=== PATIENT | female | born 1940 | race Caucasian/White ===

== ENCOUNTER → 2017-11-14 | Outpatient (CLI) | payer OTHER ==
[2017-11-14 17:44] LABS: BASO % 0.2 %; BASO ABS # 0.02 K/uL (0-0.2); EOS ABS # 0.19 K/uL (0-0.5); HEMATOCRIT 39.7 % (37-47); HEMOGLOBIN 13.2 g/dL (12.0-16.0); IG# 0.02 K/uL (0.00-0.02); LYMPH % 35.8 %; LYMPH ABS # 3.41 K/uL (1.2-3.4); MEAN CELL VOLUME 83.6 fL (80-100); MEAN CORPUSCULAR HEMOGLOBIN 27.8 pg (25-34); MEAN CORPUSCULAR HGB CONC 33.2 g/dl (32-36); MEAN PLATELET VOLUME 9.5 fL (7.4-10.4); MONO % 6.5 %; MONO ABS # 0.62 K/uL (0.11-0.59); NEUT % 55.3 %; NEUT ABS # 5.27 K/uL (1.4-6.5); PLATELET COUNT 286 K/uL (130-400); RED CELL DISTRIBUTION WIDTH CV 13.2 % (11.5-14.5); RED CELL DISTRIBUTION WIDTH SD 39.8 fL (36.4-46.3); WHITE BLOOD COUNT 9.53 K/uL (4.8-10.8)
[2017-11-14 18:19] LABS: BLOOD UREA NITROGEN 11 mg/dl (7-18); CREATININE 0.59 mg/dl (0.60-1.20); GLUCOSE 91 mg/dl (70-99)
[2017-11-14 18:20] LABS: CALCIUM 9.5 mg/dl (8.5-10.1); CARBON DIOXIDE 29 mmol/L (21-32); POTASSIUM 3.6 mmol/L (3.5-5.1); SODIUM 136 mmol/L (136-145)
== END | disposition home or self-care (01) ==
LOC: C.LABMFLN 16:33
PROVIDERS: ATTEND Family Medicine
DX: R06.09 Other forms of dyspnea (principal); R00.2 Palpitations; I50.9 Heart failure, unspecified

== ENCOUNTER → 2017-11-22 | Outpatient (CLI) | payer OTHER ==
[2017-11-22 13:19] LABS: BLOOD UREA NITROGEN 13 mg/dl (7-18); CALCIUM 9.4 mg/dl (8.5-10.1); CARBON DIOXIDE 29 mmol/L (21-32); CREATININE 0.62 mg/dl (0.60-1.20); GLUCOSE 81 mg/dl (70-99); SODIUM 136 mmol/L (136-145)
[2017-11-23 14:01] LABS: MICROSOMAL AB 498 IU/ML (<9)
== END | disposition home or self-care (01) ==
LOC: C.LABMFLN 09:02
PROVIDERS: ATTEND Family Medicine
DX: I50.9 Heart failure, unspecified (principal); E05.90 Thyrotoxicosis, unspecified without thyrotoxic crisis or storm

== ENCOUNTER → 2017-12-06 | Outpatient (CLI) | payer OTHER | END | disposition home or self-care (01) | LOC: C.LABMFLN 10:27 | PROVIDERS: ATTEND Family Medicine | DX: E05.90 Thyrotoxicosis, unspecified without thyrotoxic crisis or storm (principal) ==

== ENCOUNTER → 2018-01-05 | Outpatient (CLI) | payer OTHER ==
[2018-01-05 14:17] LABS: BLOOD UREA NITROGEN 13 mg/dl (7-18); CALCIUM 9.8 mg/dl (8.5-10.1); CARBON DIOXIDE 31 mmol/L (21-32); CREATININE 0.78 mg/dl (0.60-1.20); GLUCOSE 86 mg/dl (70-99); POTASSIUM 3.9 mmol/L (3.5-5.1); SODIUM 136 mmol/L (136-145)
== END | disposition home or self-care (01) ==
LOC: C.LABMFLN 09:10
PROVIDERS: ATTEND Family Medicine
DX: E05.90 Thyrotoxicosis, unspecified without thyrotoxic crisis or storm (principal); I10 Essential (primary) hypertension; I50.9 Heart failure, unspecified

== ENCOUNTER → 2018-04-25 | Outpatient (CLI) | payer OTHER | END | disposition home or self-care (01) | LOC: C.LABMFLN 12:44 | PROVIDERS: ATTEND Family Medicine | DX: E05.90 Thyrotoxicosis, unspecified without thyrotoxic crisis or storm (principal) ==

== ENCOUNTER 2024-01-30 11:29 | Inpatient (IN) ==
--- NOTE | 2024-01-30 11:51 | Emergency Department Note ---
History of Present Illness General Chief complaint: Cardiac Assessment Time Seen by Provider: 01/30/24 11:35 Source: patient, RN notes reviewed and old records reviewed (I have reviewed an outpatient note from Dr. Macdonald's office today when the patient presented there) Mode of arrival: EMS Limitations: no limitations History of Present Illness Maximum Pain Intensity: 2 This patient is an 84-year-old female who has a very complex medical history including coronary artery disease CHF and arrhythmias, comes in after not feeling well for the last 2 weeks or so she says. She sees Dr. Macdonald every month and went in today and was not feeling well she says she feels like her heart is beating fast when I asked her how long she said it has been a couple weeks she is on Eliquis which she says she has been taking she does feel chronically lightheaded and dizzy. She denies any blood or melena in her stool denies chest pain at present but had some earlier. She has had some nausea at times. She has no shortness of breath at times. She is allergic to aspirin but they did apparently give her nitro in the office. She also apparently was given Cardizem 10 mg IV in the ambulance. Home Medications Medication Instructions Recorded Confirmed Type multivitamin 1 tab PO QAM 08/18/21 01/30/24 History biotin 5,000 mcg disintegrating 10,000 mcg PO QAM 12/16/21 01/30/24 History tablet food supplemt, lactose-reduced 1 ea PO UD 12/16/21 01/30/24 History (Protein Nutritional Shake oral liquid) triamcinolone acetonide 0.1 % 1 applic topical BID PRN itchy 04/07/22 01/30/24 Rx topical cream skin/ eczema #80 grams propylene glycol 0.6 % eye drops 1 drp ophthalmic (eye) DAILY PRN 08/02/22 01/30/24 History (Systane Complete) Dry Eye(S) nitroglycerin 0.4 mg sublingual 0.4 mg sublingual Q5M PRN chest 09/15/22 01/30/24 Rx tablet pain #25 tabs atorvastatin 40 mg tablet 40 mg PO QPM #90 tabs 01/31/23 01/30/24 Rx menthol 9.1 mg lozenges 9.1 mg mucous membrane Q1H PRN 05/25/23 01/30/24 History Cough Oxygen Home 05/31/23 01/30/24 History albuterol sulfate 90 mcg/actuation 2 puff inhalation Q4H PRN 05/31/23 01/30/24 Rx aerosol inhaler shortness of breath or wheezing #18 grams ferrous sulfate 325 mg (65 mg 325 mg PO DAILY 08/02/23 01/30/24 History iron) tablet fluticasone propionate 50 1 spray intranasal DAILY #16 grams 09/19/23 01/30/24 Rx mcg/actuation nasal spray,suspension paroxetine HCl 30 mg tablet 30 mg PO DAILY #30 tabs 09/19/23 01/30/24 Rx loratadine 10 mg tablet 10 mg PO DAILY PRN allergy 10/17/23 01/30/24 Rx symptoms #30 tabs metoprolol tartrate 25 mg tablet 25 mg PO BID #60 tabs 11/26/23 01/30/24 Rx valacyclovir 1 gram tablet 2,000 mg (2 x 1 gram) PO Q12H PRN 12/28/23 01/30/24 Rx cold sores 1 day #12 tabs torsemide 20 mg tablet 20 mg PO QAM #30 tabs 01/02/24 01/30/24 Rx levothyroxine 75 mcg tablet 75 mcg PO .COMPLEX #30 tabs 01/08/24 01/30/24 Rx apixaban 5 mg tablet (Eliquis) 0 mg PO BID 01/30/24 01/30/24 History potassium chloride 20 mEq 20 meq PO BID 01/30/24 01/30/24 History tablet,extended release prednisone 5 mg tablet 5 mg PO DAILY 01/30/24 01/30/24 History trazodone 100 mg tablet 100 - 200 mg PO HS PRN insomnia 01/30/24 01/30/24 History Allergies Allergy/AdvReac Type Severity Reaction Status Date / Time aspirin Allergy Severe hives and Verified 01/30/24 14:01 itching Penicillins Allergy Severe hives and Verified 01/30/24 14:01 itching red dye Allergy Mild itching Verified 01/30/24 14:01 over time with consistency Past Med/Surg History Problem List (Updated 01/30/24 @ 14:27 by Anthony Garduno MD) Elevated troponin I level (Acute) Atrial flutter with rapid ventricular response (Acute) Current use of nursing home anticoagulation (Acute) Chest pain (Acute) Dyspnea Chest discomfort Rapid atrial fibrillation Orthostatic hypotension Right upper quadrant abdominal pain Rib pain Renal insufficiency COPD, severe Pleural effusion Rhinovirus (HFpEF) heart failure with preserved ejection fraction Persistent atrial fibrillation Hypothyroidism PMR (polymyalgia rheumatica) Chronic rhinitis Chronic heart failure with preserved ejection fraction Coronary artery disease Atrial fibrillation Hot flashes RSV (respiratory syncytial virus infection) Coronary artery disease Hypoxia Cough Fatigue Pulmonary hypertension (Acute) Mitral regurgitation (Acute) Cervicalgia of ugaahmqp-cnkyduv-mhyfd region (Acute) Rotator cuff tear Postmenopausal symptoms Chronic diarrhea Anemia Chronic GERD Abnormal weight loss Abnormal weight loss Collagenous colitis Acute cholecystitis Nasal congestion Ovarian cyst Bilateral wrist pain PMR (polymyalgia rheumatica) Viral wart on finger Anticoagulant long-term use Iron deficiency anemia S/P CABG x 3 (~04/22/22) [facility] - coronary artery bypass grafting x 3 using JERRY-LAD and reversed saphenous vein graft to obtuse marginal (2) and posterior descending. Seronegative rheumatoid arthritis Abnormal CT of liver Cholecystitis hx Chronic rhinitis Chronic diastolic CHF (congestive heart failure) Insomnia (Acute) Benign essential hypertension (Acute) Hypercholesterolemia (Acute) Graves disease (Acute) monitoring with PCP, medication PRN depending on the levels euthyroid per 01/2022, 03/2022 labs Dyslipidemia (Acute) Asthma, mild intermittent (Acute) Herpes labialis Medical History (Updated 01/30/24 @ 14:27 by Anthony Garduno MD) On amiodarone therapy Sepsis Depression Paroxysmal atrial fibrillation Wound infection after surgery left leg below the knee (where the artery was removed for the bypass surgery 04/22/2022) -- currently changing wet/dry pack BID. home health care 2 to 3x week Non-STEMI (non-ST elevated myocardial infarction) 04/22/[address] [facility] Surgical History History of anesthesia reaction "breathing problems" after the cholecystectomy (05/2021; [facility]) S/P unilateral salpingo-oophorectomy RSO at [facility] 2021 History of esophagogastroduodenoscopy (EGD) History of colonoscopy Hx of cholecystectomy [facility] - inpatient s/p 4 days d/t surgery complications. patient unsure if it was related to surgical vs anesthesia problems. H/O shoulder surgery Bilateral RCR History of breast biopsy History of tubal ligation History of hysterectomy with LSO Family History Father Myocardial infarction Mother Hyperthyroidism Sister Breast cancer Daughter Hypertension Denies family history of Ovarian cancer Prostate cancer Colorectal cancer Social History Smoking Status: Former smoker Tobacco Type: Cigarettes Smoking End Date: 35 years ago; Second Hand Exposure: No; Do You Dip or Chew Tobacco: No; Tobacco Cessation Education Requested by Patient: No Hx Alcohol Use: No Hx Substance Use: No Preferred Language: Comoran Communication Ability: Effective Visual Impairment: Partially Limited Hearing Ability: Normal Research Librarian Required: No Beliefs That Will Affect Care: None marital status: / Current Living Situation: Family current occupational status: retired 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 How many Children do You have: 2 Other Information That Helps Us Care for You: No Feels Safe at Home: Yes Safety Concerns: Feels Safe At This Time Dental Care, Regularly: Yes Seatbelt Use: always Assistive Devices: Cane, Denture - Lower, Nebulizer, Oxygen - Continuous and Wheelchair Review of Systems A total of 10 systems reviewed and were otherwise negative Physical Exam Vital Signs Vital Signs - 24 hr 01/30/24 11:29 01/30/24 11:43 01/30/24 12:00 Temperature 36.7 C Temperature Source Oral Pulse Rate 131 H 131 H 132 H Pulse Rate from SpO2 Sensor 133 H Pulse Rhythm Regular Respiratory Rate 18 18 24 Respiratory Effort / Characteristics Non-Labored Respiratory Depth Normal Respiratory Pattern Regular Blood Pressure 128/88 135/100 Blood Pressure Mean 101 111 Pulse Oximetry 95 95 98 Oxygen Delivery Method Nasal Cannula Nasal Cannula Oxygen Flow Rate 2 2 Sepsis Recent Fever Within 48 Hours No Sepsis New/Unexplained Change in Mental Status N/A Sepsis Action Taken by Nursing No Action Required 01/30/24 12:09 01/30/24 12:22 01/30/24 12:30 Temperature Temperature Source Pulse Rate 132 H 122 H 131 H Pulse Rate from SpO2 Sensor 131 H Pulse Rhythm Respiratory Rate 19 Respiratory Effort / Characteristics Respiratory Depth Respiratory Pattern Blood Pressure 135/100 139/96 Blood Pressure Mean 110 Pulse Oximetry 100 Oxygen Delivery Method Oxygen Flow Rate Sepsis Recent Fever Within 48 Hours Sepsis New/Unexplained Change in Mental Status Sepsis Action Taken by Nursing 01/30/24 13:00 01/30/24 13:04 Temperature Temperature Source Pulse Rate 132 H 132 H Pulse Rate from SpO2 Sensor 132 H Pulse Rhythm Respiratory Rate 27 H Respiratory Effort / Characteristics Respiratory Depth Respiratory Pattern Blood Pressure 141/86 H 141/86 H Blood Pressure Mean 104 Pulse Oximetry 100 Oxygen Delivery Method Oxygen Flow Rate Sepsis Recent Fever Within 48 Hours Sepsis New/Unexplained Change in Mental Status Sepsis Action Taken by Nursing General: Well developed well nourished chronically ill-appearing older female who appears in no acute distress, breathing comfortably on room air. Normal speech HEENT: Normal cephalic atraumatic. Pupils are equal round and reactive to light. Extraocular movements are intact. Oropharynx is pink with moist mucous membranes. No swelling of the mouth lips or tongue. Neck: Supple with a midline trachea. No meningeal signs or stiffness, no JVD or bruits. No Stridor. Chest: Clear to auscultation bilaterally. No wheezes or rhonchi. No increased work of breathing. Heart: Regular rate and rhythm with what appears to be 2-1 a flutter on the monitor at a rate of about 130 without murmurs or gallops. Abdomen: Soft nontender, nondistended without rebound guarding or rigidity. Extremities: No cyanosis clubbing or edema. No calf tenderness or assymetry Spine/Back. Non tender to palpation. No CVA tenderness Skin: Good turgor without rashes. Neurologic exam: Cranial nerves two through 12 are intact. Motor and sensation are intact and symmetrical throughout. Course Administered Medications Discontinued Medications Metoprolol Tartrate (Metoprolol Tartrate 1 Mg/Ml Vial) 5 mg IV NOW STA Stop: 01/30/24 12:04 Last Admin: 01/30/24 12:09 Dose: 5 mg Documented By: SO Medical Decision Making Differential Diagnosis Acute coronary syndrome, arrhythmia, A-fib/a flutter, CHF, electrolyte or metabolic abnormality, anemia, infection, pulmonary disease Medical Records Attestation: I reviewed the patient's medical records. Home Medications Current Medication List: was personally reviewed by me Laboratory Data Attestation: I reviewed the patient's lab results. 01/30/24 11:45 01/30/24 11:45 Lab Results 01/30/24 Range/Units 11:45 WBC 10.88 H (4.8-10.8) K/ul RBC 3.89 L (4.20-5.40) M/uL Hgb 9.5 L (12.0-16.0) g/dl Hct 32.6 L (37.0-47.0) % MCV 83.8 (80.0-100.0) fL MCH 24.4 L (25.0-34.0) pg MCHC 29.1 L (32.0-36.0) g/dL RDW Std Deviation 50.2 H (36.4-46.3) fL RDW Coeff of [place] 16.6 H (11.5-14.5) % Plt Count 308 (130-400) K/uL MPV 9.6 (9.4-12.4) fL Immature Gran % (Auto) 0.6 % Neut % (Auto) 71.0 % Lymph % (Auto) 16.5 % [place] % (Auto) 7.8 % Eos % (Auto) 3.5 % Baso % (Auto) 0.6 % Neut # (Auto) 7.72 H (1.40-6.50) K/uL Lymph # (Auto) 1.80 (1.20-3.40) K/uL [place] # (Auto) 0.85 H (0.11-0.59) K/uL Eos # (Auto) 0.38 (0.00-0.50) K/uL Baso # (Auto) 0.06 (0.00-0.20) K/uL Immature Gran # (Auto) 0.07 (0.01-0.20) K/uL Absolute Nucleated RBC 0.02 (0.00-0.12) K/uL Nucleated RBC % (auto) 0.2 % PT 13.0 H (9.0-12.0) Seconds INR 1.2 H (0.9-1.1) APTT 25 (21-31) Seconds PTT Ratio 0.9 Sodium 141 (136-145) mmol/L Potassium 3.9 (3.5-5.1) mmol/L Chloride 104 (98-107) mmol/L Carbon Dioxide 28 (21-32) mmol/L Anion Gap 9 (3-11) BUN 28 H (6-23) mg/dl Creatinine 1.16 (0.6-1.2) mg/dl Est Cr Clr Drug Dosing 32.0 ml/min Est GFR ( Amer) 50.8 ml/min Est GFR (Non-Af Amer) 43.8 ml/min BUN/Creatinine Ratio 24.1 H (10-20) Glucose 79 (70-99(Fasting)) mg/dl Calcium 9.5 (8.6-10.3) mg/dl Magnesium 1.9 (1.7-2.4) mg/dl Total Bilirubin 0.7 (0.2-1.0) mg/dl AST 47 H (13-39) U/L ALT 41 (7-52) U/L Alkaline Phosphatase 147 H (34-104) U/L Troponin I High Sens 27.2 H (0-14) pg/ml B-Natriuretic Peptide 190 H (0-100) pg/ml Total Protein 6.8 (6.0-8.3) gm/dl Albumin 3.9 (3.4-5.0) gm/dl Globulin 2.9 (2.5-4.0) gm/dl Albumin/Globulin Ratio 1.3 (0.9-2) Lipase 28 (11-82) U/L TSH 0.083 L (0.300-4.500) uIu/ml Free T4 2.58 H (0.61-1.60) ng/dl Imaging Data Attestation: I personally reviewed and interpreted this imaging study as follows: My Impression: Chest x-raycardiomegaly and previous cardiac surgery. Increased interstitial markings which are likely chronic and no overt CHF pneumonia or pneumothorax seen Radiologist's Impression: Chest X-Ray 01/30/24 11:43 XR chest 1V portable CLINICAL HISTORY: Chest pain, nonspecific TECHNIQUE: Single frontal radiograph of the chest was obtained. Comparison: Comparison is made to chest radiograph 11/01/2008 FINDINGS: Median sternotomy wires are unchanged. Cardiomegaly is noted. The aortic arch is calcified. Trace right and small left pleural effusions. Mild left lower lung airspace opacities. IMPRESSION: Mild left lower lung airspace opacity with small left pleural effusion. This may represent atelectasis with or without superimposed aspiration/pneumonia. ACT 112: Negative or not required by law. Electronically signed by: Suhail Worthington M.D. 01/30/2024 12:37 PM ECG Data Attestation: I personally reviewed and interpreted this ECG as follows: Indication: + chest pain and + palpitations Rate (beats per minute): 132 Rhythm: + atrial flutter (With 2-1 conduction) ECG Intervals/blocks: + Normal QRS ECG [place]: + Normal ECG ST segments: + Normal ST segments ECG Findings: no PACs or no PVCs Comparison ECG Date: from (06/17/22) Change: the following changes noted (A flutter has replaced normal sinus rhythm) Additional Comments: I did also review/interpret the EKG that was done in the primary care doctor's office which shows a flutter with a rate of 133 and looks similar to the EKG done here MDM Narrative This patient was sent over from Dr. Macdonald's office she has had chest pain and is found to be in a flutter in his office apparently she was in A-fib with a rapid ventricular rate she has not been feeling well for several weeks now. She tells me she has no chest pain at present. She also tells me that her hearts been racing for several weeks she is on Eliquis. I did order chest x-ray after reviewing her extensive medical history as well as multiple blood testing and EKG. She was placed on a monitoring manager room B2. She was given Lopressor 5 mg IV this may have dropped her rate into the 120s briefly but it seems to be sitting in the 130s with flutter. She has no fever or white count to suggest infection she has chronic anemia. She is no acute electrolyte or metabolic abnormality TSH is mildly low and she could be slightly hyperthyroid, but I do not think she is likely in thyroid storm. Troponin was mildly elevated. She has no chest pain at present and is resting comfortably I did discuss case with Dr. Anthony Garduno and he will see the patient in the ER for admission/observation. He did want me to hold off on the second dose of Lopressor that I had ordered and was subsequently canceled as they will likely start her on a different medication or cardiovert her in the hospital. He is going to further discuss it with the guide plant. Continuous cardiac monitoring: Orders placed in the EMR for continuous monitoring manager call upon my evaluation patient noted to be in atrial fibs/flutter with a rate of 130 Impression & Plan Atrial flutter with rapid ventricular response, Chest pain, Current use of nursing home anticoagulation, Elevated troponin I level Discharge Plan Visit Data Chief Complaint: Cardiac Assessment ED Provider: Sonny Malhotra Discharge Problem: Atrial flutter with rapid ventricular response, Chest pain, Current use of outreach analyst anticoagulation, Elevated troponin I level Discharge Instructions Interventions: ED Discharge Assessment Last Done: 01/30/24 14:08 Discharge Problem: Chest pain Qualifiers: Chest pain type: precordial pain Qualified Code(s): R07.2 - Precordial pain
[2024-01-30] MEDS: METOPROLOL TARTRATE 1 MG/ML VIAL IV STA (12:09)
[2024-01-30 12:15] LABS: Basophils # (auto) 0.06 K/uL (0.00-0.20); Basophils % (auto) 0.6 %; Eosinophils # (auto) 0.38 K/uL (0.00-0.50); Eosinophils % (auto) 3.5 %; Hematocrit (blood only) 32.6 % (37.0-47.0); Hemoglobin 9.5 g/dl (12.0-16.0); Immature Granulocytes # (auto) 0.07 K/uL (0.01-0.20); Immature Granulocytes % (auto) 0.6 %; Lymphocytes % (auto) 16.5 %; Mean Corpuscular Hemoglobin 24.4 pg (25.0-34.0); Mean Corpuscular Hgb Conc 29.1 g/dL (32.0-36.0); Mean Corpuscular Volume 83.8 fL (80.0-100.0); Mean Platelet Volume 9.6 fL (9.4-12.4); Monocytes # (auto) 0.85 K/uL (0.11-0.59); Monocytes % (auto) 7.8 %; Neutrophils # (auto) 7.72 K/uL (1.40-6.50); Nucleated RBC # (auto) 0.02 K/uL (0.00-0.12); Nucleated RBC % (auto) 0.2 %; Platelet Count 308 K/uL (130-400); RDW Coefficient of Variation 16.6 % (11.5-14.5); RDW Standard Deviation 50.2 fL (36.4-46.3); Red Blood Count 3.89 M/uL (4.20-5.40); White Blood Count 10.88 K/ul (4.8-10.8)
[2024-01-30 12:33] LABS: Albumin Globulin Ratio 1.3 (0.9-2); Albumin Level 3.9 gm/dl (3.4-5.0); BUN Creatinine Ratio 24.1 (10-20); Bilirubin,Total 0.7 mg/dl (0.2-1.0); Calcium 9.5 mg/dl (8.6-10.3); Est GFR (African American) 50.8 ml/min; Est GFR (Non-African American) 43.8 ml/min; Globulin 2.9 gm/dl (2.5-4.0); Magnesium 1.9 mg/dl (1.7-2.4); Potassium 3.9 mmol/L (3.5-5.1); Total Protein 6.8 gm/dl (6.0-8.3)
[2024-01-30 12:38] LABS: Troponin I High Sensitivity 27.2 pg/ml (0-14)
--- NOTE | 2024-01-30 12:38 | XRay Report ---
XR chest 1V portable CLINICAL HISTORY: Chest pain, nonspecific TECHNIQUE: Single frontal radiograph of the chest was obtained. Comparison: Comparison is made to chest radiograph 11/01/2008 FINDINGS: Median sternotomy wires are unchanged. Cardiomegaly is noted. The aortic arch is calcified. Trace rig ht and small left pleural effusions. Mild left lower lung airspace opacities. IMPRESSION: Mild left lower lung airspace opacity with small left pleural effusion. This may represent atelectasi s with or without superimposed aspiration/pneumonia. ACT 112: Negative or not required by law. Electronically signed by: Suhail Worthington M.D. 01/30/2024 12:37 PM
[2024-01-30 12:40] LABS: INR 1.2 (0.9-1.1); Partial Thromboplastin Ratio 0.9; Partial Thromboplastin Time 25 Seconds (21-31)
[2024-01-30 12:47] LABS: Thyroid Stimulating Hormone 0.083 uIu/ml (0.300-4.500)
[2024-01-30] MEDS ORDERED: METOPROLOL TARTRATE 1 MG/ML VIAL IV STA (12:49)
--- NOTE | 2024-01-30 12:53 | Electrocardiogram Report ---
Test Reason : Blood Pressure : / mmHG Vent. Rate : 132 BPM Atrial Rate : 264 BPM P-R Int : 000 ms QRS Dur : 096 ms QT Int : 348 ms P-R-T Axes : -80 -16 190 degrees QTc Int : 515 ms Atrial flutter with 2:1 A-V conduction Nonspecific ST and T wave abnormality Abnormal ECG When compared with ECG of 17-JUN-2022 08:07, Atrial flutter has replaced Sinus rhythm Vent. rate has increased BY [address] and T wave abnormality now present Confirmed by Chad Ferguson ([id number]) on 01/30/2024 12:53:33 PM Referred By: Confirmed By:Chad Ferguson
--- NOTE | 2024-01-30 12:57 | History & Physical Report ---
Date of Service January 30, 2024 Assessment & Plan (1) Atrial flutter with rapid ventricular response: Plan: Electrical +/- chemical cardioversion, would avoid further rate control given her symptoms are very mild Consult cardiology for decision regarding above, NPO until seen by cardiology Over treated hypothyroidism may be playing a part and levothyroxine will be discontinued Continue anticoagulation - Eliquis (2) (HFpEF) heart failure with preserved ejection fraction: Plan: Acute on chronic - suspect acute worsening due to decreased torsemide and rate related from #1 Will defer increasing torsemide until cardioversion given prior increased dose while in a. flutter she was hypotensive (3) PMR (polymyalgia rheumatica): Plan: Continue prednisone (notably prescribed 40mg PO daily but she has on her bottle she is taking 5mg PO daily) (4) Hypothyroidism: Plan: TSH 0.083, free T4 2.58 - possibly contributing Stop levothyroxine (5) S/P CABG x 3: (6) Seronegative rheumatoid arthritis: (7) Benign essential hypertension: Plan VTE Prophylaxis - Eliquis Diet - NPO until cardiology review Disposition - admit Admission and Anticipated Discharge Date Admission Date: January 30, 2024 History of Present Illness Chief Complaint: Chest pain Shortness of breath Primary Care Provider: Nigel Macdonald MD Elma Steve is an 84 year old female who presents to the ER with chest pain and shortness of breath. She reports this has been ongoing and getting worse for the last 2 weeks. No fever, chills, cough, weight gain (although notably on EHR she has gained weight). She has noticed orthopnea and increased leg swelling. She was seen by her PCP today and there was concern about a. fib RVR with her having 4/10 chest pain therefore she was sent to the ER for further investigation. Currently chest pain 1/10, central, no radiation. Notably at her PCP appointment on January 01 she was dizzy with low sBP therefore torsemide was reduced. She has noticed increased leg swelling since then. With hindsight her heart rate was 128 at that appointment and she may have been in a. flutter at that time. Allergies Allergy/AdvReac Type Severity Reaction Status Date / Time aspirin Allergy Severe hives and Verified 01/30/24 14:01 itching Penicillins Allergy Severe hives and Verified 01/30/24 14:01 itching red dye Allergy Mild itching Verified 01/30/24 14:01 over time with consistency Home Medications Medication Instructions Recorded Confirmed Type multivitamin 1 tab PO QAM 08/18/21 01/30/24 History biotin 5,000 mcg disintegrating 10,000 mcg PO QAM 12/16/21 01/30/24 History tablet food supplemt, lactose-reduced 1 ea PO UD 12/16/21 01/30/24 History (Protein Nutritional Shake oral liquid) triamcinolone acetonide 0.1 % 1 applic topical BID PRN itchy 04/07/22 01/30/24 Rx topical cream skin/ eczema #80 grams propylene glycol 0.6 % eye drops 1 drp ophthalmic (eye) DAILY PRN 08/02/22 01/30/24 History (Systane Complete) Dry Eye(S) nitroglycerin 0.4 mg sublingual 0.4 mg sublingual Q5M PRN chest 09/15/22 01/30/24 Rx tablet pain #25 tabs atorvastatin 40 mg tablet 40 mg PO QPM #90 tabs 01/31/23 01/30/24 Rx menthol 9.1 mg lozenges 9.1 mg mucous membrane Q1H PRN 05/25/23 01/30/24 History Cough Oxygen Home 05/31/23 01/30/24 History albuterol sulfate 90 mcg/actuation 2 puff inhalation Q4H PRN 05/31/23 01/30/24 Rx aerosol inhaler shortness of breath or wheezing #18 grams ferrous sulfate 325 mg (65 mg 325 mg PO DAILY 08/02/23 01/30/24 History iron) tablet fluticasone propionate 50 1 spray intranasal DAILY #16 grams 09/19/23 01/30/24 Rx mcg/actuation nasal spray,suspension paroxetine HCl 30 mg tablet 30 mg PO DAILY #30 tabs 09/19/23 01/30/24 Rx loratadine 10 mg tablet 10 mg PO DAILY PRN allergy 10/17/23 01/30/24 Rx symptoms #30 tabs metoprolol tartrate 25 mg tablet 25 mg PO BID #60 tabs 11/26/23 01/30/24 Rx valacyclovir 1 gram tablet 2,000 mg (2 x 1 gram) PO Q12H PRN 12/28/23 01/30/24 Rx cold sores 1 day #12 tabs torsemide 20 mg tablet 20 mg PO QAM #30 tabs 01/02/24 01/30/24 Rx levothyroxine 75 mcg tablet 75 mcg PO .COMPLEX #30 tabs 01/08/24 01/30/24 Rx apixaban 2.5 mg tablet 2.5 mg PO BID #60 tabs 01/30/24 01/30/24 Rx potassium chloride 20 mEq 20 meq PO BID 01/30/24 01/30/24 History tablet,extended release prednisone 5 mg tablet 5 mg PO DAILY 01/30/24 01/30/24 History trazodone 100 mg tablet 100 - 200 mg PO HS PRN insomnia 01/30/24 01/30/24 History Past Med/Surg History Problem List Elevated troponin I level (Acute) Atrial flutter with rapid ventricular response (Acute) Current use of custodial anticoagulation (Acute) Chest pain (Acute) Dyspnea Chest discomfort Rapid atrial fibrillation Orthostatic hypotension Right upper quadrant abdominal pain Rib pain Renal insufficiency COPD, severe Pleural effusion Rhinovirus (HFpEF) heart failure with preserved ejection fraction Persistent atrial fibrillation Hypothyroidism PMR (polymyalgia rheumatica) Chronic rhinitis Chronic heart failure with preserved ejection fraction Coronary artery disease Atrial fibrillation Hot flashes RSV (respiratory syncytial virus infection) Coronary artery disease Hypoxia Cough Fatigue Pulmonary hypertension (Acute) Mitral regurgitation (Acute) Cervicalgia of yfpbdxsw-ngqdzkb-pvokr region (Acute) Rotator cuff tear Postmenopausal symptoms Chronic diarrhea Anemia Chronic GERD Abnormal weight loss Abnormal weight loss Collagenous colitis Acute cholecystitis Nasal congestion Ovarian cyst Bilateral wrist pain PMR (polymyalgia rheumatica) Viral wart on finger Anticoagulant long-term use Iron deficiency anemia S/P CABG x 3 (~04/22/22) [facility] - coronary artery bypass grafting x 3 using JERRY-LAD and reversed saphenous vein graft to obtuse marginal (2) and posterior descending. Seronegative rheumatoid arthritis Abnormal CT of liver Cholecystitis hx Chronic rhinitis Chronic diastolic CHF (congestive heart failure) Insomnia (Acute) Benign essential hypertension (Acute) Hypercholesterolemia (Acute) Graves disease (Acute) monitoring with PCP, medication PRN depending on the levels euthyroid per 01/2022, 03/2022 labs Dyslipidemia (Acute) Asthma, mild intermittent (Acute) Herpes labialis Medical History On amiodarone therapy Sepsis Depression Paroxysmal atrial fibrillation Wound infection after surgery left leg below the knee (where the artery was removed for the bypass surgery 04/22/2022) -- currently changing wet/dry pack BID. home health care 2 to 3x week Non-STEMI (non-ST elevated myocardial infarction) 04/22/22 [facility] Surgical History History of anesthesia reaction "breathing problems" after the cholecystectomy (05/2021; [facility]) S/P unilateral salpingo-oophorectomy RSO at [facility] 2021 History of esophagogastroduodenoscopy (EGD) History of colonoscopy Hx of cholecystectomy [facility] May 2021 - inpatient s/p 4 days d/t surgery comp lications. patient unsure if it was related to surgical vs anesthesia problems. H/O shoulder surgery Bilateral RCR History of breast biopsy History of tubal ligation History of hysterectomy with LSO Family History Father Myocardial infarction Mother Hyperthyroidism Sister Breast cancer Daughter Hypertension Denies family history of Ovarian cancer Prostate cancer Colorectal cancer Social History Smoking Status: Former smoker Tobacco Type: Cigarettes Smoking End Date: 35 years ago; Second Hand Exposure: No; Do You Dip or Chew Tobacco: No; Tobacco Cessation Education Requested by Patient: No Hx Alcohol Use: No Hx Substance Use: No Preferred Language: New Zealander Communication Ability: Effective Visual Impairment: Partially Limited Hearing Ability: Normal Aircrewman Required: No Beliefs That Will Affect Care: None marital status: / Current Living Situation: Family current occupational status: retired 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 How many Children do You have: 2 Other Information That Helps Us Care for You: No Feels Safe at Home: Yes Safety Concerns: Feels Safe At This Time Dental Care, Regularly: Yes Seatbelt Use: always Assistive Devices: Cane, Denture - Lower, Nebulizer, Oxygen - Continuous and Wheelchair Review of Systems Review of Systems: All systems reviewed & are unremarkable except as noted in HPI & below Physical Exam Constitutional: WD/WN, vitals as above Eyes: PERRL, conjunctivae normal, anicteric sclerae ENMT: external ear and nose normal, oropharynx normal Respiratory: normal respiratory effort, lungs clear to auscultation Cardiovascular: Rate/Rhythm: regular rhythm and + tachycardic Heart Sounds: no murmur Extremities: normal capillary refill and + pedal edema (1+ b/l equal); no calf tenderness Gastrointestinal (Abdomen): normal bowel sounds, soft, nontender, no hepatosplenomegaly Musculoskeletal: no cyanosis or clubbing, extremities motor strength 5/5 Skin: no rashes, warm and dry Neurologic: moves all extremities and awake; not confused Psychiatric: A+Ox3, euthymic affect Genitourinary: no CVA tenderness Results & Data Results & Data Vital Signs (Past 12 Hours) Vital Signs Temp Pulse Resp BP Pulse Ox O2 Del Method O2 Flow Rate 01/30/24 12:22 122 H 01/30/24 12:09 132 H 135/100 01/30/24 11:43 131 H 18 95 Nasal Cannula 2 01/30/24 11:29 36.7 C 131 H 18 128/88 95 Nasal Cannula 2 Laboratory Results Abnormal lab results 01/30/24 01/30/24 Range/Units 11:45 14:12 WBC 10.88 H (4.8-10.8) K/ul RBC 3.89 L (4.20-5.40) M/uL Hgb 9.5 L (12.0-16.0) g/dl Hct 32.6 L (37.0-47.0) % MCH 24.4 L (25.0-34.0) pg MCHC 29.1 L (32.0-36.0) g/dL RDW Std Deviation 50.2 H (36.4-46.3) fL RDW Coeff of Wayne 16.6 H (11.5-14.5) % Neut # (Auto) 7.72 H (1.40-6.50) K/uL Murray # (Auto) 0.85 H (0.11-0.59) K/uL PT 13.0 H (9.0-12.0) Seconds INR 1.2 H (0.9-1.1) BUN 28 H (6-23) mg/dl BUN/Creatinine Ratio 24.1 H (10-20) AST 47 H (13-39) U/L Alkaline Phosphatase 147 H (34-104) U/L Troponin I High Sens 27.2 H 25.9 H (0-14) pg/ml B-Natriuretic Peptide 190 H (0-100) pg/ml TSH 0.083 L (0.300-4.500) uIu/ml Free T4 2.58 H (0.61-1.60) ng/dl Diagnostic Findings XR chest 1V portable CLINICAL HISTORY: Chest pain, nonspecific TECHNIQUE: Single frontal radiograph of the chest was obtained. Comparison: Comparison is made to chest radiograph 11/01/2008 FINDINGS: Median sternotomy wires are unchanged. Cardiomegaly is noted. The aortic arch is calcified. Trace right and small left pleural effusions. Mild left lower lung airspace opacities. IMPRESSION: Mild left lower lung airspace opacity with small left pleural effusion. This may represent atelectasis with or without superimposed aspiration/pneumonia. Medications Administered ER Medications Given: Metoprolol 5mg IV x1 ECG Rate (beats per minute): 132 Rhythm: atrial flutter Findings: + nonspecific-ST abn Comparison ECG Date: from (Jun 17, 2022) Change: the following changes noted (atrial flutter replaced sinus rhythm) Code Status & VTE Plan Code Status Full VTE Prophylaxis Plan VTE Prophylaxis will be ordered: Yes PG Care Time/CCT Total # of Minutes Spent Total Time Spent with Patient: Total time spent is greater than 50% in coordination of care (as documented) at patient's floor/unit and/or counseling patient: Coding Level of Care Code 53825 INT INP/OBS CARE 3/75MIN Diagnoses Atrial flutter with rapid ventricular response I48.92 (HFpEF) heart failure with preserved ejection fraction I50.30 PMR (polymyalgia rheumatica) M35.3 Hypothyroidism E03.9 S/P CABG x 3 Z95.1 Seronegative rheumatoid arthritis M06.00 Benign essential hypertension I10
[2024-01-30 13:21] LABS: T4 Free Thyroxine 2.58 ng/dl (0.61-1.60)
[2024-01-30] MEDS: APIXABAN 2.5 MG TAB PO STA (16:52)
--- NOTE | 2024-01-30 17:00 | Cardiology Consultation ---
Date of Consultation January 30, 2024 Assessment & Plan (1) Atrial flutter with rapid ventricular response: (2) COPD, severe: (3) S/P CABG x 3: (4) (HFpEF) heart failure with preserved ejection fraction: Plan 84-year-old woman status post remote CABG with chronic HFpEF and severe COPD who has had intermittent atrial dysrhythmias. She was previously on amiodarone but this was stopped due to elevated liver function tests. It appears that she has been in atrial flutter for the past month, or that she has had intermittent atrial flutter during this time, therefore proceeding directly to electrical cardioversion would be unlikely to maintain sinus rhythm absent additional me dical therapy to change the cardiac milieu. Sotalol not a consideration given her active bronchospasm/severe COPD. Flecainide not a consideration given her CAD/CABG. Would recommend increasing her beta-mono, from her current dose of metoprolol tartrate 25 mg twice daily to metoprolol tartrate 25 mg every 6 hours while hospitalized (hold for SBP less than 90 mmHg or heart rate less than 50 bpm). Depending upon her rate response, could consider rate control alone (if heart rate 80-100 bpm range), or could proceed with elective cardioversion (if heart rate remains greater than 100 bpm and hypotension precludes further upward titration of medication). Her congestive symptoms are minimal currently and she appears fairly euvolemic, she is able to lie flat comfortably. If she does have worsening dyspnea acutely, a dose of IV torsemide would be appropriate. No indication of significant ongoing myocardial ischemia. Continue anticoagulation with low-dose apixaban (2.5 mg twice daily). Will continue to follow and offer further recommendations based on her response to increase beta-blockade History of Present Illness Reason for Consultation: A flutter RVR Requesting Physician: Atnhony Garduno MD Attending Physician: Anthony Garduno MD History of Present Illness 84-year-old woman with chronic HFpEF, CAD (status post CABG x 3), paroxysmal atrial fibrillation, and severe COPD who was noted to have recurrent atrial flutter and admitted to [facility] today. She notes that for the past several weeks she has felt markedly fatigued, lightheaded at times, and had very poor exercise tolerance. No chest pain at any time and no presyncope or syncope. No subjective palpitations. No orthopnea, PND, or leg edema. For the past 3 days she has noted some abdominal discomfort as well. Her baseline heart rate over the past year has generally been in the 55-70 bpm range, however her heart rate was 128 bpm and her pulse was irregular at the time of a PCP visit on 01/02/2024. She is chronically anticoagulated with reduced dose apixaban (age greater than 80, weight less than 60 kg), no bleeding problems. ECG today showed atrial flutter with 2 1 AV conduction and ventricular rate 132 bpm. Troponin was 25.9. Chest x-ray showed small left pleural effusion with atelectasis or superimposed aspiration/pneumonia. At the time my evaluation, patient was comfortable at rest and had no somatic complaints. Allergies Allergy/AdvReac Type Severity Reaction Status Date / Time aspirin Allergy Severe hives and Verified 01/30/24 14:01 itching Penicillins Allergy Severe hives and Verified 01/30/24 14:01 itching red dye Allergy Mild itching Verified 01/30/24 14:01 over time with consistency Home Medications Medication Instructions Recorded Confirmed Type multivitamin 1 tab PO QAM 08/18/21 01/30/24 History biotin 5,000 mcg disintegrating 10,000 mcg PO QAM 12/16/21 01/30/24 History tablet food supplemt, lactose-reduced 1 ea PO UD 12/16/21 01/30/24 History (Protein Nutritional Shake oral liquid) triamcinolone acetonide 0.1 % 1 applic topical BID PRN itchy 04/07/22 01/30/24 Rx topical cream skin/ eczema #80 grams propylene glycol 0.6 % eye drops 1 drp ophthalmic (eye) DAILY PRN 08/02/22 01/30/24 History (Systane Complete) Dry Eye(S) nitroglycerin 0.4 mg sublingual 0.4 mg sublingual Q5M PRN chest 09/15/22 01/30/24 Rx tablet pain #25 tabs atorvastatin 40 mg tablet 40 mg PO QPM #90 tabs 01/31/23 01/30/24 Rx menthol 9.1 mg lozenges 9.1 mg mucous membrane Q1H PRN 05/25/23 01/30/24 History Cough Oxygen Home 05/31/23 01/30/24 History albuterol sulfate 90 mcg/actuation 2 puff inhalation Q4H PRN 05/31/23 01/30/24 Rx aerosol inhaler shortness of breath or wheezing #18 grams ferrous sulfate 325 mg (65 mg 325 mg PO DAILY 08/02/23 01/30/24 History iron) tablet fluticasone propionate 50 1 spray intranasal DAILY #16 grams 09/19/23 01/30/24 Rx mcg/actuation nasal spray,suspension paroxetine HCl 30 mg tablet 30 mg PO DAILY #30 tabs 09/19/23 01/30/24 Rx loratadine 10 mg tablet 10 mg PO DAILY PRN allergy 10/17/23 01/30/24 Rx symptoms #30 tabs metoprolol tartrate 25 mg tablet 25 mg PO BID #60 tabs 11/26/23 01/30/24 Rx valacyclovir 1 gram tablet 2,000 mg (2 x 1 gram) PO Q12H PRN 12/28/23 01/30/24 Rx cold sores 1 day #12 tabs torsemide 20 mg tablet 20 mg PO QAM #30 tabs 01/02/24 01/30/24 Rx levothyroxine 75 mcg tablet 75 mcg PO .COMPLEX #30 tabs 01/08/24 01/30/24 Rx apixaban 2.5 mg tablet 2.5 mg PO BID #60 tabs 01/30/24 Rx potassium chloride 20 mEq 20 meq PO BID 01/30/24 01/30/24 History tablet,extended release prednisone 5 mg tablet 5 mg PO DAILY 01/30/24 01/30/24 History trazodone 100 mg tablet 100 - 200 mg PO HS PRN insomnia 01/30/24 01/30/24 History Patient History Medical History On amiodarone therapy Sepsis Depression Paroxysmal atrial fibrillation Wound infection after surgery left leg below the knee (where the artery was removed for the bypass surgery 04/22/2022) -- currently changing wet/dry pack BID. home health care 2 to 3x week Non-STEMI (non-ST elevated myocardial infarction) 04/22/22 [facility] Surgical History History of anesthesia reaction "breathing problems" after the cholecystectomy (05/2021; [facility]) S/P unilateral salpingo-oophorectomy RSO at [facility] 2021 History of esophagogastroduodenoscopy (EGD) History of colonoscopy Hx of cholecystectomy [facility] May 2021 - inpatient s/p 4 days d/t surgery complications. patient unsure if it was related to surgical vs anesthesia p tong. H/O shoulder surgery Bilateral RCR History of breast biopsy History of tubal ligation History of hysterectomy with LSO Family History Father Myocardial infarction Mother Hyperthyroidism Sister Breast cancer Daughter Hypertension Denies family history of Ovarian cancer Prostate cancer Colorectal cancer Social History Smoking Status: Former smoker Tobacco Type: Cigarettes Smoking End Date: 35 years ago; Second Hand Exposure: No; Do You Dip or Chew Tobacco: No; Tobacco Cessation Education Requested by Patient: No Hx Alcohol Use: No Hx Substance Use: No Preferred Language: Ghanaian Communication Ability: Effective Visual Impairment: Partially Limited Hearing Ability: Normal Digital Media Associate Required: No Beliefs That Will Affect Care: None marital status: / Current Living Situation: Family current occupational status: retired 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 BP normotensive. Pulse 132 bpm and irregular. Respirations 22 but unlabored. Skin: no ecchymoses or generalized lesions. HEENT: unremarkable. Neck: JVP at the clavicle at 90 degrees, no carotid bruits. Lungs: Rectally decreased breath sounds with diffuse expiratory wheezing and rhonchi. No accessory muscle use. Cardiac: Tachycardic/irregular rhythm, normal S1-2, 3/6 apical holosystolic murmur, no diastolic murmur. Abdomen: benign. Extremities: Chronic stasis changes but no edema, pulses intact. Neurologic: normal affect and conversation, nonfocal. Results & Data Laboratory Results Normal electrolytes, BUN 28, creatinine 1.16. Magnesium 1.9. Hemoglobin 9.5. WBC 10.88. Diagnostic Findings ECG and chest x-ray as per HPI. PG Care Time/CCT Total # of Minutes Spent Total Time Spent with Patient: Total time spent is greater than 50% in coordination of care (as documented) at patient's floor/unit and/or counseling patient: Coding Level of Care Code 50211 INT INP/OBS CARE 3/75MIN Diagnoses Atrial flutter with rapid ventricular response I48.92 COPD, severe J44.9 S/P CABG x 3 Z95.1 (HFpEF) heart failure with preserved ejection fraction I50.30
--- NOTE | 2024-01-30 17:20 | XCELERA ---
[id number] [id number]
[2024-01-30] MEDS ORDERED: TRIAMCINOLONE ACET 0.1% CR 15 GM TUBE TOP PRN (19:43)
[2024-01-30] MEDS ORDERED: ARTIFICIAL TEARS OP PRN (20:25)
[2024-01-30] MEDS: ACETAMINOPHEN 325 MG TAB PO PRN (20:41)
[2024-01-30] MEDS: APIXABAN 2.5 MG TAB PO SCH (20:42)
[2024-01-30] MEDS: METOPROLOL TARTRATE 25 MG TAB PO SCH (20:42)
[2024-01-30] MEDS: ATORVASTATIN 40 MG TAB PO SCH (20:42)
[2024-01-30] MEDS: LEVOTHYROXINE SODIUM 75 MCG TABLET PO SCH (20:43)
[2024-01-30] MEDS: POTASSIUM CHLORIDE CRTAB 20 MEQ TABCR PO SCH (20:43)
[2024-01-30] MEDS: traZODone HCL 100 MG TAB PO PRN (20:46)
[2024-01-31 06:07] LABS: Albumin Globulin Ratio 1.3 (0.9-2); Albumin Level 3.2 gm/dl (3.4-5.0); BUN Creatinine Ratio 24.3 (10-20); Bilirubin,Total 0.6 mg/dl (0.2-1.0); Calcium 9.2 mg/dl (8.6-10.3); Creatinine Clr Calc Pharmacy 30.9 ml/min; Est GFR (African American) 53.6 ml/min; Est GFR (Non-African American) 46.2 ml/min; Globulin 2.4 gm/dl (2.5-4.0); Potassium 4.4 mmol/L (3.5-5.1); Total Protein 5.6 gm/dl (6.0-8.3)
[2024-01-31 06:15] LABS: Basophils # (auto) 0.07 K/uL (0.00-0.20); Basophils % (auto) 0.8 %; Eosinophils # (auto) 0.72 K/uL (0.00-0.50); Eosinophils % (auto) 8.3 %; Hematocrit (blood only) 29.2 % (37.0-47.0); Hemoglobin 8.7 g/dl (12.0-16.0); Immature Granulocytes # (auto) 0.04 K/uL (0.01-0.20); Immature Granulocytes % (auto) 0.5 %; Lymphocytes # (auto) 2.01 K/uL (1.20-3.40); Lymphocytes % (auto) 23.1 %; Mean Corpuscular Hemoglobin 24.8 pg (25.0-34.0); Mean Corpuscular Hgb Conc 29.8 g/dL (32.0-36.0); Mean Corpuscular Volume 83.2 fL (80.0-100.0); Mean Platelet Volume 10.1 fL (9.4-12.4); Monocytes # (auto) 0.79 K/uL (0.11-0.59); Monocytes % (auto) 9.1 %; Neutrophils # (auto) 5.09 K/uL (1.40-6.50); Neutrophils % (auto) 58.2 %; Platelet Count 248 K/uL (130-400); RDW Coefficient of Variation 16.6 % (11.5-14.5); RDW Standard Deviation 49.3 fL (36.4-46.3); Red Blood Count 3.51 M/uL (4.20-5.40); White Blood Count 8.72 K/ul (4.8-10.8)
[2024-01-31] MEDS: LORATADINE 10 MG TAB PO PRN (07:25)
[2024-01-31] MEDS: TORSEMIDE 20 MG TAB PO SCH (08:00)
[2024-01-31] MEDS: predniSONE 5 MG TAB PO SCH (08:00)
[2024-01-31] MEDS: FERROUS SULFATE 325 MG TAB PO SCH (08:01)
[2024-01-31] MEDS ORDERED: PARoxetine HCL 10 MG TAB PO SCH (09:00)
--- NOTE | 2024-01-31 11:46 | Hospitalist Progress Note ---
Date of Service January 31, 2024 Assessment & Plan (1) Atrial flutter with rapid ventricular response: Plan: P/w rapid atrial flutter with rates in 120s, SOB, and acute on chronic HFmEF. Possibly has been in [facility] for 1 month Consult cardiology appreciated-rate control strategy attempts first-increased metoprolol to 25mg po q6h----> so far, no changein rates Will d/w Cardiology today about cardioversion vs further increase in metoprolol Over treated hypothyroidism may be playing a part and levothyroxine will be reduced to 50 mcg daily Continue anticoagulation - Eliquis Continue tele monitoring Keep lytes replete-follow BMP, Mag (2) (HFpEF) heart failure with preserved ejection fraction: Plan: Acute on chronic HFmEF-ECHO here with reduced EF 40-45% which is a change from previous, possibly 2/2 tachyarrhythmia- also with recently decreased torsemide dosing due to hypotension as outpt With elevated BNP, CXR with bilat trace pleural effusions, mildly elevated troponin likely from myocardial demand ischemia Continue po torsemide for now and consider IV lasix if worsening Strict I/Os, daily weights, low Na+ diet once eating Improved rate control as above Mildly elevated AST and Alk phos could be from hepatic congestion-follow LFTs (3) PMR (polymyalgia rheumatica): Plan: Continue prednisone (notably prescribed 40mg PO daily but she has on her bottle she is taking 5mg PO daily) (4) Hypothyroidism: Plan: TSH 0.083, free T4 2.58 - possibly contributing Decrease levothyroxine to 50 mcg daily (from home dose 75mcg on 6 days and 37.5 on one day of the week Follow TSH in 4 weeks (5) S/P CABG x 3: Plan: Known CAD, with mildly elevated trop here as above Continue Eliquis, metoprolol, statin Not on ASA? (6) Seronegative rheumatoid arthritis: Plan: on chronic prednisone (7) Benign essential hypertension: Plan: BPs stable continue metoprolol (8) Iron deficiency anemia: Plan: hgb baseline around 10, on Fe supplement hgb now down to 8.7, no active bleeding but is on Eliquis last colonoscopy she thinks was 4 yrs ago, never had EGD recommend outpt follow up with GI Plan VTE Prophylaxis - Eliquis Diet - NPO until cardiology review for cardioversion Disposition - continued stay on PCU Admission and Anticipated Discharge Date Admission Date: January 30, 2024 Subjective Pt reports ongoing fatigue and feels lightheaded with sitting up even. She just wants to feel better and is hoping her aflutter goes away. Still having some occasional short periods of chest pressure that go away on their own Tele with aflutter, rates 120s Physical Exam 2 Constitutional: WD/WN, vitals as above Respiratory: normal respiratory effort; no cough Auscultation: + crackles ( bibasilar); no rhonchi and no wheezes Cardiovascular: Rate/Rhythm: + tachycardic and + irregularly irregular Heart Sounds: no murmur Extremities: + edema (trace edema legs bilat) Gastrointestinal (Abdomen): normal bowel sounds, soft, nontender, no hepatosplenomegaly Psychiatric: A+Ox3, euthymic affect Results & Data Results & Data Vital Signs (Past 12 Hours) Vital Signs Temp Pulse Resp BP Pulse Ox O2 Del Method O2 Flow Rate 01/31/24 11:37 36.8 C 128 H 17 134/87 100 Nasal Cannula 2 01/31/24 08:00 Nasal Cannula 2 01/31/24 07:28 36.7 C 134 H 17 132/79 100 Nasal Cannula 2 01/31/24 02:45 36.9 C 130 H 16 124/73 98 Nasal Cannula 2 Laboratory Results CBC, CMP, magnesium reviewed Diagnostic Findings ECHO reviewed PG Care Time/CCT Total # of Minutes Spent Total Time Spent with Patient: Total time spent is greater than 50% in coordination of care (as documented) at patient's floor/unit and/or counseling patient: Coding Level of Care Code 09181 SUB INP/OBS CARE 3/50MIN Diagnoses Atrial flutter with rapid ventricular response I48.92 (HFpEF) heart failure with preserved ejection fraction I50.30 PMR (polymyalgia rheumatica) M35.3 Hypothyroidism E03.9 S/P CABG x 3 Z95.1 Seronegative rheumatoid arthritis M06.00 Benign essential hypertension I10 Iron deficiency anemia D50.9
--- NOTE | 2024-01-31 13:12 | Cardiology Progress Note ---
Date of Service January 31, 2024 Assessment & Plan (1) Atrial flutter with rapid ventricular response: Plan: -remains with a rapid ventricular response despite increased metoprolol tartrate. -anesthesia unable to assist with the cardioversion until tomorrow morning. -would add digoxin 0.25 mg IV x2. -NPO except medications after midnight. (2) S/P CABG x 3: Plan: -quiescent on medical management. (3) (HFpEF) heart failure with preserved ejection fraction: Plan: -well compensated at this time. Admission and Anticipated Discharge Date Admission Date: January 30, 2024 Subjective The patient is resting comfortably in bed without complaints of chest pain, dyspnea, or palpitations. We have discussed proceeding with an elective, electrical cardioversion. The patient understands and agrees to proceed. Physical Exam Physical Exam: In general is a well-developed well-nourished white female no acute distress. HEENT exam is negative. Neck is supple with full carotid upstrokes. No carotid bruits. Jugular venous pressure is flat at 90. No thyromegaly. Cardiov ascular exam reveals a regular rhythm with distant heart sounds. No obvious murmurs. Lungs are clear without rales, rhonchi or wheezes. Abdomen is soft without bruits. Extremities reveal intact radial artery pulses bilaterally. Trace pretibial edema is noted. Results & Data Vital Signs (Past 12 Hours) Vital Signs Temp Pulse Pulse Resp BP Pulse Ox O2 Del Method 01/31/24 12:10 119 H 01/31/24 11:37 36.8 C 128 H 17 134/87 100 Nasal Cannula 01/31/24 08:00 Nasal Cannula 01/31/24 07:28 36.7 C 134 H 17 132/79 100 Nasal Cannula 01/31/24 02:45 36.9 C 130 H 16 124/73 98 Nasal Cannula O2 Flow Rate 01/31/24 12:10 01/31/24 11:37 2 01/31/24 08:00 2 01/31/24 07:28 2 01/31/24 02:45 2 Diagnostic Findings nurse monitoring notes atrial flutter with 2-1 AV conduction. PG Care Time/CCT Total # of Minutes Spent Total Time Spent with Patient: Total time spent is greater than 50% in coordination of care (as documented) at patient's floor/unit and/or counseling patient: Coding Level of Care Code 59825 SUB INP/OBS CARE 350MIN Diagnoses Atrial flutter with rapid ventricular response I48.92 S/P CABG x 3 Z95.1 (HFpEF) heart failure with preserved ejection fraction I50.30
[2024-01-31] MEDS: DIGOXIN 250 MCG in SYRINGE 9 ML IV ONE ×2 (14:01→17:28)
[2024-01-31] MEDS ORDERED: DIGOXIN 250 MCG in SYRINGE 9.5 ML IV ONE (17:30)
[2024-01-31] MEDS: diphenhydrAMINE 50 MG/ML VIAL IV STA (19:56)
[2024-01-31] MEDS: PARoxetine HCL 10 MG TAB PO SCH (20:52)
[2024-01-31] MEDS ORDERED: traZODone HCL 100 MG TAB PO PRN (21:51)
[2024-01-31] MEDS: LORazepam 0.25 MG in SYRINGE 0.125 ML IV STA (22:17)
[2024-02-01] MEDS: ALBUT/IPRATROP 3MG/0.5MG NEB 3 ML VIAL NEB STA (05:36)
[2024-02-01] MEDS: LEVOTHYROXINE SODIUM 50 MCG TABLET PO SCH (06:02)
[2024-02-01 06:36] LABS: Basophils # (auto) 0.06 K/uL (0.00-0.20); Basophils % (auto) 0.6 %; Eosinophils # (auto) 0.59 K/uL (0.00-0.50); Eosinophils % (auto) 5.9 %; Hematocrit (blood only) 31.1 % (37.0-47.0); Hemoglobin 9.2 g/dl (12.0-16.0); Immature Granulocytes # (auto) 0.07 K/uL (0.01-0.20); Immature Granulocytes % (auto) 0.7 %; Lymphocytes % (auto) 23.1 %; Mean Corpuscular Hemoglobin 24.7 pg (25.0-34.0); Mean Corpuscular Hgb Conc 29.6 g/dL (32.0-36.0); Mean Corpuscular Volume 83.4 fL (80.0-100.0); Neutrophils # (auto) 6.12 K/uL (1.40-6.50); Neutrophils % (auto) 61.7 %; Nucleated RBC # (auto) 0.02 K/uL (0.00-0.12); Nucleated RBC % (auto) 0.2 %; Platelet Count 300 K/uL (130-400); RDW Coefficient of Variation 16.5 % (11.5-14.5); RDW Standard Deviation 49.9 fL (36.4-46.3); Red Blood Count 3.73 M/uL (4.20-5.40); White Blood Count 9.94 K/ul (4.8-10.8)
[2024-02-01 06:49] LABS: Albumin Level 3.3 gm/dl (3.4-5.0); BUN Creatinine Ratio 20.4 (10-20); Bilirubin Direct 0.2 mg/dl (0-0.2); Bilirubin,Total 0.6 mg/dl (0.2-1.0); Calcium 9.2 mg/dl (8.6-10.3); Creatinine Clr Calc Pharmacy 23.3 ml/min; Est GFR (African American) 38.1 ml/min; Est GFR (Non-African American) 32.9 ml/min; Potassium 4.2 mmol/L (3.5-5.1)
--- NOTE | 2024-02-01 07:09 | Anesthesiology Consultation ---
Date of Service February 01, 2024 Assessment & Plan (1) Encounter for pre-operative examination: Chart Review Chart Review: Acceptable Risk for Surgery History Surgery Operation Date: 02/01/24 07:45 Proposed Procedures p Cardioversion Senior Account Director w/Anesthesia - Moshe Gray MD Height/Weight Height: 5 ft 2 in Weight: 56.1 kg Allergies Allergy/AdvReac Type Severity Reaction Status Date / Time aspirin Allergy Severe hives and Verified 01/30/24 14:01 itching Penicillins Allergy Severe hives and Verified 01/30/24 14:01 itching red dye Allergy Mild itching Verified 01/30/24 14:01 over time with consistency Medications Home Medications Medication Instructions Recorded Confirmed Last Taken multivitamin 1 tab PO QAM 08/18/21 01/30/24 Unknown biotin 5,000 mcg disintegrating 10,000 mcg PO QAM 12/16/21 01/30/24 Unknown tablet food supplemt, lactose-reduced 1 ea PO UD 12/16/21 01/30/24 Unknown (Protein Nutritional Shake oral liquid) triamcinolone acetonide 0.1 % 1 applic topical BID PRN itchy 04/07/22 01/30/24 Unknown topical cream skin/ eczema #80 grams propylene glycol 0.6 % eye drops 1 drp ophthalmic (eye) DAILY PRN 08/02/22 01/30/24 Unknown (Systane Complete) Dry Eye(S) nitroglycerin 0.4 mg sublingual 0.4 mg sublingual Q5M PRN chest 09/15/22 01/30/24 Unknown tablet pain #25 tabs atorvastatin 40 mg tablet 40 mg PO QPM #90 tabs 01/31/23 01/30/24 01/29/24 menthol 9.1 mg lozenges 9.1 mg mucous membrane Q1H PRN 05/25/23 01/30/24 Unknown Cough Oxygen Home 05/31/23 01/30/24 Unknown albuterol sulfate 90 mcg/actuation 2 puff inhalation Q4H PRN 05/31/23 01/30/24 Unknown aerosol inhaler shortness of breath or wheezing #18 grams ferrous sulfate 325 mg (65 mg 325 mg PO DAILY 08/02/23 01/30/24 Unknown iron) tablet fluticasone propionate 50 1 spray intranasal DAILY #16 grams 09/19/23 01/30/24 Unknown mcg/actuation nasal spray,suspension paroxetine HCl 30 mg tablet 30 mg PO DAILY #30 tabs 09/19/23 01/30/24 01/29/24 loratadine 10 mg tablet 10 mg PO DAILY PRN allergy 10/17/23 01/30/24 01/29/24 symptoms #30 tabs metoprolol tartrate 25 mg tablet 25 mg PO BID #60 tabs 11/26/23 01/30/24 01/29/24 valacyclovir 1 gram tablet 2,000 mg (2 x 1 gram) PO Q12H PRN 12/28/23 01/30/24 Unknown cold sores 1 day #12 tabs torsemide 20 mg tablet 20 mg PO QAM #30 tabs 01/02/24 01/30/24 01/29/24 levothyroxine 75 mcg tablet 75 mcg PO .COMPLEX #30 tabs 01/08/24 01/30/24 01/29/24 apixaban 2.5 mg tablet 2.5 mg PO BID #60 tabs 01/30/24 01/30/24 01/29/24 potassium chloride 20 mEq 20 meq PO BID 01/30/24 01/30/24 01/29/24 tablet,extended release prednisone 5 mg tablet 5 mg PO DAILY 01/30/24 01/30/24 01/29/24 trazodone 100 mg tablet 100 - 200 mg PO HS PRN insomnia 01/30/24 01/30/24 Unknown Active Medications Generic Name Dose Route Start Last Admin Trade Name Freq PRN Reason Stop Dose Admin Acetaminophen 650 mg 01/30/24 15:07 01/30/24 20:41 Acetaminophen 325 Mg Tab PO 02/29/24 15:06 650 mg Q4H PRN Administration Pain or Fever Apixaban 2.5 mg 01/30/24 21:00 01/31/24 20:51 Apixaban 2.5 Mg Tab PO 02/29/24 20:59 2.5 mg BID REINA Administration Atorvastatin Calcium 40 mg 01/30/24 21:00 01/31/24 20:51 Atorvastatin 40 Mg Tab PO 02/29/24 20:59 40 mg QPM REINA Administration Ferrous Sulfate 325 mg 01/31/24 09:00 01/31/24 08:01 Ferrous Sulfate 325 Mg Tab PO 03/01/24 08:59 325 mg DAILY REINA Administration Levothyroxine Sodium 50 mcg 02/01/24 06:30 02/01/24 06:02 Levothyroxine Sodium 50 Mcg Tablet PO 03/02/24 06:29 50 mcg DAILYBB REINA Administration Loratadine 10 mg 01/30/24 19:43 01/31/24 07:25 Loratadine 10 Mg Tab PO 02/29/24 19:42 10 mg DAILY PRN Administration allergy symptoms Metoprolol Tartrate 25 mg 01/30/24 19:45 02/01/24 03:15 Metoprolol Tartrate 25 Mg Tab PO 02/29/24 19:44 25 mg Q6H REINA Administration Paroxetine HCl 30 mg 01/31/24 21:00 01/31/24 20:52 Paroxetine Hcl 10 Mg Tab PO 03/01/24 20:59 30 mg HS REINA Administration Potassium Chloride 20 meq 01/30/24 21:00 01/31/24 20:52 Potassium Chloride Crtab 20 Meq Tabcr PO 02/29/24 20:59 20 meq BID REINA Administration Prednisone 5 mg 01/31/24 09:00 01/31/24 08:00 Prednisone 5 Mg Tab PO 03/01/24 08:59 5 mg DAILY REINA Administration Torsemide 20 mg 01/31/24 09:00 01/31/24 08:00 Torsemide 20 Mg Tab PO 03/01/24 08:59 20 mg QAM REINA Administration Past Medical History Medical History On amiodarone therapy Sepsis Depression Paroxysmal atrial fibrillation Wound infection after surgery left leg below the knee (where the artery was removed for the bypass surgery 04/22/2022) -- currently changing wet/dry pack BID. home health care 2 to 3x week Non-STEMI (non-ST elevated myocardial infarction) 04/22/22 [facility] Past Family History Family History Father Myocardial infarction Mother Hyperthyroidism Sister Breast cancer Daughter Hypertension Denies family history of Ovarian cancer Prostate cancer Colorectal cancer Past Surgical History Surgical History History of anesthesia reaction "breathing problems" after the cholecystectomy (05/2021; [facility]) S/P unilateral salpingo-oophorectomy RSO at [facility] 2021 History of esophagogastroduodenoscopy (EGD) History of colonoscopy Hx of cholecystectomy [facility] May 2021 - inpatient s/p 4 days d/t surgery complications. patient unsure if it was related to surgical vs anesthesia problems. H/O shoulder surgery Bilateral RCR History of breast biopsy History of tubal ligation History of hysterectomy with LSO Social History Smoking Status: Former smoker tobacco type: cigarettes Do You Dip or Chew Tobacco: No Smoking End Date: 35 years ago Hx Alcohol Use: No Hx Substance Use: No Physical Exam Vital Signs Last Vital Signs Temp 36.7 C 02/01/24 03:16 Pulse 100 H 02/01/24 03:16 Resp 18 02/01/24 03:16 BP 143/81 H 02/01/24 03:16 Pulse Ox 90 02/01/24 03:16 O2 Del Method Nasal Cannula 02/01/24 03:16 O2 Flow Rate 2 02/01/24 03:16 Testing Laboratory Results 02/01/24 06:11 02/01/24 06:11 PT 13.0 Seconds (9.0-12.0) H 01/30/24 11:45 INR 1.2 (0.9-1.1) H 01/30/24 11:45 APTT 25 Seconds (21-31) 01/30/24 11:45
--- NOTE | 2024-02-01 08:18 | Cardioversion ---
Date of Service February 01, 2024 PG Electrical Cardioversion Rp Electrical Cardioversion Report Date of procedure: February 01, 2024 Procedure: Elective, electrical cardioversion Indication: Refractory atrial fibrillation and atrial flutter Protocol: After informed consent and a time-out performed, the patient was sedated smoothly by Anesthesia. The patient was monitored continuously by telemetry, and tidal CO2, pulse oximetry, and sphygmomanometry. Once anesthetized, the patient was given 100 joules of synchronized biphasic energy via hands-off paddles. This was not successful. Therefore, the patient was given 200 joules of synchronized biphasic energy via hands-off paddles. This also was not successful. The patient was then given 300 joules synchronized biphasic energy via hands-off and successfully converted to sinus rhythm. There were no complications. The patient tolerated the procedure well. Conclusions: 1. Successful cardioversion to sinus rhythm. 2. No complications. Coding Level of Care Code 00270 CARDIOVERSION, ELECTIVE Additional Codes Electrical Cardioversion Report ([id number])
[2024-02-01] MEDS ORDERED: LIDOCAINE 2% 2 ML VIAL/AMP(20MG/ML) INFIL ONE (08:24)
[2024-02-01] MEDS ORDERED: PROPOFOL IV EMULSION 10 MG/ML 20 ML VIAL IV ONE (08:24)
--- NOTE | 2024-02-01 08:40 | Anesthesiology Progress Note ---
Date of Service February 01, 2024 Anesthesia Post Procedure Vital Signs Vital Signs: Temp Pulse Pulse Resp BP Pulse Ox O2 Del Method 02/01/24 08:15 78 18 106/66 100 Nasal Cannula 02/01/24 07:55 84 18 126/62 100 Nasal Cannula 02/01/24 03:16 36.7 C 100 H 18 143/81 H 90 Nasal Cannula 02/01/24 01:48 95 H 01/31/24 22:49 36.5 C 125 H 20 114/66 93 Nasal Cannula 01/31/24 22:43 37.8 C H 107 H 18 106/57 L 94 Room Air 01/31/24 19:50 36.8 C 73 18 124/70 95 Nasal Cannula 01/31/24 19:40 Nasal Cannula 01/31/24 17:28 120 H 01/31/24 16:53 130 H 01/31/24 15:03 36.8 C 129 H 19 113/72 98 Nasal Cannula 01/31/24 14:01 130 H 01/31/24 14:00 130 H 133/81 01/31/24 12:10 119 H 01/31/24 11:37 36.8 C 128 H 17 134/87 100 Nasal Cannula O2 Flow Rate 02/01/24 08:15 3 02/01/24 07:55 3 02/01/24 03:16 2 02/01/24 01:48 01/31/24 22:49 2 01/31/24 22:43 01/31/24 19:50 3 01/31/24 19:40 2 01/31/24 17:28 01/31/24 16:53 01/31/24 15:03 2 01/31/24 14:01 01/31/24 14:00 01/31/24 12:10 01/31/24 11:37 2 Pain Intensity Head: Pain Intensity: 3 Transfer of Care Handoff Completed per policy Notes Mental Status: alert / awake / arousable Patient Amnestic to Procedure: Yes Nausea / Vomiting: adequately controlled Pain: adequately controlled Airway Patency, RR, SpO2: stable & adequate BP & HR: stable & adequate Hydration State: stable & adequate Anesthetic Complications: no major complications apparent
--- NOTE | 2024-02-01 12:56 | Cardiology Progress Note ---
Date of Service February 01, 2024 Assessment & Plan (1) Atrial flutter with rapid ventricular response: Plan: -converted to atrial fibrillation overnight. -his successful cardioversion this morning. -symptoms have improved since cardioversion. -would continue digoxin 0.125 mg daily. -agree with decreasing dose of metoprolol tartrate. -stable for hospital discharge. (2) S/P CABG x 3: Plan: -quiescent on medical management. (3) (HFpEF) heart failure with preserved ejection fraction: Plan: -well compensated at this time. Admission and Anticipated Discharge Date Admission Date: January 30, 2024 Subjective The patient is resting comfortably in bed without complaints of chest pain, dyspnea, or fatigue. Claims to be improved since cardioversion. Physical Exam Physical Exam: In general is a well-developed well-nourished white female no acute distress. HEENT exam is negative. Neck is supple with full carotid upstrokes. No carotid bruits. Jugular venous pressure is flat at 90. No thyromegaly. Cardiovascular exam reveals a regular rhythm with distant heart sounds. No obvious murmurs. Lungs are clear without rales, rhonchi or wheezes. Abdomen is soft without bruits. Extremities reveal intact radial artery pulses bilaterally. Trace pretibial edema is noted. Results & Data Vital Signs (Past 12 Hours) Vital Signs Temp Pulse Pulse Resp BP Pulse Ox O2 Del Method 02/01/24 10:46 36.4 C L 81 17 125/73 100 Nasal Cannula 02/01/24 10:16 36.4 C L 86 17 118/67 100 Nasal Cannula 02/01/24 09:38 110 H 02/01/24 08:54 Nasal Cannula 02/01/24 08:42 36.3 C L 85 17 139/76 100 Room Air 02/01/24 08:15 78 18 106/66 100 Nasal Cannula 02/01/24 07:55 84 18 126/62 100 Nasal Cannula 02/01/24 03:16 36.7 C 100 H 18 143/81 H 90 Nasal Cannula 02/01/24 01:48 95 H O2 Flow Rate 02/01/24 10:46 2 02/01/24 10:16 2 02/01/24 09:38 02/01/24 08:54 2 02/01/24 08:42 02/01/24 08:15 3 02/01/24 07:55 3 02/01/24 03:16 2 02/01/24 01:48 PG Care Time/CCT Total # of Minutes Spent Total Time Spent with Patient: Total time spent is greater than 50% in coordination of care (as documented) at patient's floor/unit and/or counseling patient: Coding Level of Care Code 02590 SUB INP/OBS CARE 3/50MIN Diagnoses Atrial flutter with rapid ventricular response I48.92 S/P CABG x 3 Z95.1 (HFpEF) heart failure with preserved ejection fraction I50.30
[2024-02-01] MEDS: DIGOXIN 0.125 MG TAB PO SCH (15:47)
--- NOTE | 2024-02-01 16:00 | Discharge Summary ---
Discharge Summary Date of Service February 01, 2024 Notes For Next Care Provider Needs digoxin level and BMP drawn in 1 week Medication Changes From Visit Added digoxin 0.125mg po qPM Added Toprol XL 50mg po hs Discontinued metoprolol tartrate 25mg po bid Admission HPI Per Admitting Provider Elma Steve is an 84 year old female who presents to the ER with chest pain and shortness of breath. She reports this has been ongoing and getting worse for the last 2 weeks. No fever, chills, cough, weight gain (although notably on EHR she has gained weight). She has noticed orthopnea and increased leg swelling. She was seen by her PCP today and there was concern about a. fib RVR with her having 4/10 chest pain therefore she was sent to the ER for further in vestigation. Currently chest pain 1/10, central, no radiation. Notably at her PCP appointment on January 01 she was dizzy with low sBP therefore torsemide was reduced. She has noticed increased leg swelling since then. With hindsight her heart rate was 128 at that appointment and she may have been in a. flutter at that time. Principal Dx & Hospital Course #1 = Principal Diagnosis (1) Atrial flutter with rapid ventricular response: P/w rapid atrial flutter with rates in 120s, SOB, and acute on chronic HFmEF. Possibly has been in DENICE for 1 month Consult cardiology appreciated-rate control strategy attempts first-increased metoprolol to 25mg po q6h----> no change in rates Added digoxin loading dose and rates did improve to the 80s but remained in Aflutter Over treated hypothyroidism may be playing a part and levothyroxine reduced to 50 mcg daily Cardioverted with 3 shocks on 01/31 and returned to NSR with frequent PACs Pt feeling better, BPs stable Because of reduced EF--> change metoprolol tartrate to Toprol XL 50mg daily. Follow up with Cardiology outpt for ongoing HF management if EF persistently low after rate/rhythm control Continue anticoagulation - Leonides (2) (HFpEF) heart failure with preserved ejection fraction: Acute on chronic HFmEF-ECHO here with reduced EF 40-45% which is a change from previous, possibly 2/2 tachyarrhythmia- also with recently decreased torsemide dosing due to hypotension as outpt With elevated BNP, CXR with bilat trace pleural effusions, mildly elevated troponin likely from myocardial demand ischemia Continued po torsemide and then held for mild rise in adobe ball mixer-can resume torsemide tomorrow Added Toprol XL 50mg hs and dcd tartrate Added digoxin Check BMP, digoxin level in 1 week daily weights, low Na+ diet Mildly elevated AST and Alk phos could be from hepatic congestion-follow LFTs- improved f/u with Cardiology as outpt (3) PMR (polymyalgia rheumatica): Continue prednisone 5mg daily (4) Hypothyroidism: TSH 0.083, free T4 2.58 - possibly contributing to Aflutter Decreased levothyroxine to 50 mcg daily (from home dose 75mcg on 6 days and 37.5 on one day of the week) Follow TSH in 4 weeks with PCP (5) S/P CABG x 3: Known CAD, with mildly elevated trop here as above Continue Eliquis, metoprolol, statin Not on ASA? F/u with Cardiology and PCP (6) Seronegative rheumatoid arthritis: on chronic prednisone (7) Benign essential hypertension: BPs stable continue metoprolol but changed to Toprol XL (8) Iron deficiency anemia: hgb baseline around 10, on Fe supplement hgb now down to 9.2, no active bleeding but is on Eliquis last colonoscopy she thinks was 4 yrs ago, never had EGD recommend outpt follow up with GI Follow CBC as outpt Plan VTE Prophylaxis - Eliquis Disposition - dc to home Discharge Exam Constitutional WD/WN, vitals as above Respiratory normal respiratory effort; no cough Auscultation: lungs clear to auscultation bilaterally Cardiovascular Rate/Rhythm: regular rate and regular rhythm (w/ frequent ectopy) Heart Sounds: no murmur Extremities: + edema (trace edema legs bilat) Gastrointestinal (Abdomen) normal bowel sounds, soft, nontender, no hepatosplenomegaly Psychiatric A+Ox3, euthymic affect Updated Medication List Medication Instructions Recorded Confirmed Type multivitamin 1 tab PO QAM 08/18/21 01/30/24 History biotin 5,000 mcg disintegrating 10,000 mcg PO QAM 12/16/21 01/30/24 History tablet food supplemt, lactose-reduced 1 ea PO UD 12/16/21 01/30/24 History (Protein Nutritional Shake oral liquid) triamcinolone acetonide 0.1 % 1 applic topical BID PRN itchy 04/07/22 01/30/24 Rx topical cream skin/ eczema #80 grams propylene glycol 0.6 % eye drops 1 drp ophthalmic (eye) DAILY PRN 08/02/22 01/30/24 History (Systane Complete) Dry Eye(S) nitroglycerin 0.4 mg sublingual 0.4 mg sublingual Q5M PRN chest 09/15/22 01/30/24 Rx tablet pain #25 tabs atorvastatin 40 mg tablet 40 mg PO QPM #90 tabs 01/31/23 01/30/24 Rx menthol 9.1 mg lozenges 9.1 mg mucous membrane Q1H PRN 05/25/23 01/30/24 History Cough Oxygen Home 05/31/23 01/30/24 History albuterol sulfate 90 mcg/actuation 2 puff inhalation Q4H PRN 05/31/23 01/30/24 Rx aerosol inhaler shortness of breath or wheezing #18 grams ferrous sulfate 325 mg (65 mg 325 mg PO DAILY 08/02/23 01/30/24 History iron) tablet fluticasone propionate 50 1 spray intranasal DAILY #16 grams 09/19/23 01/30/24 Rx mcg/actuation nasal spray,suspension paroxetine HCl 30 mg tablet 30 mg PO DAILY #30 tabs 09/19/23 01/30/24 Rx loratadine 10 mg tablet 10 mg PO DAILY PRN allergy 10/17/23 01/30/24 Rx symptoms #30 tabs valacyclovir 1 gram tablet 2,000 mg (2 x 1 gram) PO Q12H PRN 12/28/23 01/30/24 Rx cold sores 1 day #12 tabs torsemide 20 mg tablet 20 mg PO QAM #30 tabs 01/02/24 01/30/24 Rx apixaban 2.5 mg tablet 2.5 mg PO BID #60 tabs 01/30/24 01/30/24 Rx potassium chloride 20 mEq 20 meq PO BID 01/30/24 01/30/24 History tablet,extended release prednisone 5 mg tablet 5 mg PO DAILY 01/30/24 01/30/24 History trazodone 100 mg tablet 100 - 200 mg PO HS PRN insomnia 01/30/24 01/30/24 History digoxin 125 mcg (0.125 mg) tablet 0.125 mg PO DAILY@1600 #30 tabs 02/01/24 Rx (Digitek) levothyroxine 50 mcg tablet 50 mcg PO DAILYBB #30 tabs 02/01/24 Rx (Synthroid) metoprolol succinate 50 mg 50 mg PO HS #30 tabs 02/01/24 Rx tablet,extended release 24 hr Hospital Stay Data Consultations 01/30/24 12:56 Consult Cardiology Routine 01/30/24 12:59 ED Decision to Admit Stat Procedures Performed Operation Date: 02/01/24 07:45 Actual Procedures p Cardioversion - Moshe Gray MD Diagnostic Imagining Performed ECHO Pending Results Patient Have Any Pending Studies at Discharge: No Discharge Instructions Given to Patient (Per Discharging Provider) You were admitted with a rapid heart rhythm called atrial flutter that caused fluid to back up into your lungs. Your heart function is weakened likely because of this and that is called congestive heart failure. You were started on Toprol XL to replace your metoprolol tartrate to help with your heart failure. You had a cardioversion to shock your heart back into a regular rhythm which was s uccessful. You were also started on digoxin as this helps to lower your heart rate. Your thyroid medication, levothyroxine, was lowered to 50 mcg daily as your thyroid function was overactive. Please follow up with your Property Clerk and your PCP within 2 weeks. Call your Primary Care doctor if any of the following symptoms or problems start or get worse: * Shortness of breath or difficulty breathing * Wake up at night short of breath * Chest pain * Cough * Swelling of your hands, feet, or legs * More fatigued or tired with your normal activity * Palpitations - sudden fast heart beats WEIGHT * Weigh yourself every morning after using the bathroom. * Use the same scale. * Wear the same amount of clothing. * Write your weight down on a chart. * Call your Primary Care doctor if you gain more than 2-3 pounds in 1-2 days. MEDICATIONS * Use this discharge instruction sheet for medication instructions. * Take your medications at the time your doctor ordered. * Do not skip a dose of your medicines. * If you miss a dose of medicine, take it as soon as possible, but DO NOT DOUBLE A DOSE. * Read your medicine information when you get home. * Know all of the side effects of your medicine. If in doubt, ask your pharmacist * Call your Primary Care doctor's office if you have any side effects. * Be sure all of your doctors know what medicine and herbs you take (including cold, flu, and herbal medicine). Take the following with you to your follow-up doctor appointments: * Weight Chart * Medication List * List of questions Do not drink excessive alcohol, beer or wine. Total Time Total Time Spent Total Time Spent (In Minutes): 40 min Total Time Includes: Examination of the Patient, Discharge Planning, Medication Reconciliation and Communication With Other Providers (Cardiology) Coding Level of Care Code 26382 INP/OBS DISCH >30 MIN Diagnoses Atrial flutter with rapid ventricular response I48.92 (HFpEF) heart failure with preserved ejection fraction I50.30 PMR (polymyalgia rheumatica) M35.3 Hypothyroidism E03.9 S/P CABG x 3 Z95.1 Seronegative rheumatoid arthritis M06.00 Benign essential hypertension I10 Iron deficiency anemia D50.9
--- NOTE | 2024-02-01 16:38 | Electrocardiogram Report ---
Test Reason : Blood Pressure : / mmHG Vent. Rate : 079 BPM Atrial Rate : 079 BPM P-R Int : 168 ms QRS Dur : 082 ms QT Int : 364 ms P-R-T Axes : 098 -03 226 degrees QTc Int : 417 ms Sinus rhythm with Premature atrial complexes with Aberrant conduction Nonspecific ST and T wave abnormality Abnormal ECG When compared with ECG of 30-JAN-2024 11:35, Sinus rhythm has replaced Atrial flutter Vent. rate has decreased BY 53 BPM Confirmed by Moshe Gray ([id number]) on 02/01/2024 4:38:12 PM Referred By: Nigel Macdonald Confirmed By:Moshe Gray
[2024-02-01] MEDS ORDERED: METOPROLOL SUCC 50MG EXT REL TAB PO SCH (21:00)
[2024-02-05] MEDS ORDERED: LEVOTHYROXINE SODIUM 75 MCG TABLET PO SCH (06:30)
== END 2024-02-01 18:28 | disposition home or self-care (01) | DRG 308 ==
LOC: ED 11:29 → SUATTDRO 13:19 → 4W 13:19